=== PATIENT | female | born 1965 | race African-American/Black ===

== ENCOUNTER 2021-07-27 14:26 | Emergency (ER) | payer OTHER ==
[~2021-07-27 14:26] MED LIST: CLEOCIN300 MG PO; LISINOPRIL 10MG10 MG PO; ZANTAC150 MG PO
[2021-07-27] MEDS ORDERED: IBUPROFEN800 MG PO (23:35)
[2021-07-27] MEDS ORDERED: NORCO 5-325 TA1 EACH PO (23:35)
[2021-07-27] MEDS ORDERED: CYCLOBENZAPRINE10 MG PO (23:35)
[2021-07-27] MEDS ORDERED: MEDROL 4MG DOSEP4 MG PO (23:42)
== END 2021-07-27 23:55 | disposition home or self-care (01) ==
LOC: FER 14:26
DX: S16.1XXA Strain of muscle, fascia and tendon at neck level, initial encounter (principal); I10 Essential (primary) hypertension; Z88.2 Allergy status to sulfonamides; Z79.899 Other long term (current) drug therapy; V49.40XA Driver injured in collision with unspecified motor vehicles in traffic accident, initial encounter; Y92.410 Unspecified street and highway as the place of occurrence of the external cause
CPT/HCPCS: 70450; 72125; 73030; J1040; J1885; J7512

== ENCOUNTER 2021-12-23 17:55 | Emergency (ER) | payer OTHER ==
[~2021-12-23 17:55] MED LIST changes: +CYCLOBENZAPRINE10 MG PO; +IBUPROFEN800 MG PO; +MEDROL 4MG DOSEP4 MG PO; +NORCO 5-325 TA1 EACH PO
[2021-12-23 19:16] LABS: BASOPHIL 0.6 % (0-2); EOSINOPHIL 0.2 % (0-5); HCT 47.2 % (37.0-47.0); HGB 15.2 g/dl (12.5-16.0); LYMPHOCYTE 15.1 % (15-48); MCH 27.8 pg (25.0-31.0); MCHC 32.2 g/dL (32.0-36.0); MCV 86.4 fL (78.0-100.0); MPV 12.8 fL (6.0-9.5); NRBC 0; PLT 278 K/uL (150-400); RBC 5.46 M/uL (4.20-5.40); RDW 13.5 % (11.5-14.0); WBC 16.1 K/uL (4.0-10.5)
[2021-12-23 19:18] LABS: NEUTROPHIL 70.8 % (41-80)
[2021-12-23 19:52] LABS: CORONAVIRUS 2019 SARS-COV-2 NEGATIVE (NEGATIVE); INFLUENZA A NAA NEGATIVE (NEGATIVE)
[2021-12-23 20:14] LABS: BUN/CREAT RATIO (CALC) 27.5 RATIO; CREATININE 1.2 mg/dL (0.51-0.95); POTASSIUM 3.8 mmol/L (3.5-5.1)
[2021-12-23] MEDS ORDERED: PHENERGAN25 M1 PO (21:12)
[2021-12-23] MEDS ORDERED: ONDANSETRON ODT4 MG PO (21:12)
== END 2021-12-23 21:55 | disposition home or self-care (01) ==
LOC: FER 17:55
PROVIDERS: Emergency Medicine
DX: E86.0 Dehydration (principal); N17.9 Acute kidney failure, unspecified; K52.9 Noninfective gastroenteritis and colitis, unspecified; I10 Essential (primary) hypertension; Z20.822 Contact with and (suspected) exposure to COVID-19; Z88.2 Allergy status to sulfonamides
CPT/HCPCS: 36415; 71045; 71250; 80048; 84145; 85025; J2550; J7030; U0002

== ENCOUNTER 2022-03-05 17:44 | Emergency (ER) | payer OTHER ==
[~2022-03-05 17:44] MED LIST changes: +ONDANSETRON ODT4 MG PO; +PHENERGAN25 M1 PO
[2022-03-05 20:54] LABS: BILIRUBIN NEGATIVE (NEGATIVE); BLOOD NEGATIVE Ery/uL (NEGATIVE); CLARITY CLEAR (CLEAR); COLOR YELLOW (YELLOW); GLUCOSE (U) NORMAL (NORMAL); LEUKOCYTES NEGATIVE Leu/uL (NEGATIVE); NITRITE NEGATIVE (NEGATIVE); PROTEIN NEGATIVE (NEGATIVE); UROBILINOGEN 0.2 mg/dL (0.2-1.0); pH 5.5 (5.0-9.0)
[2022-03-05 21:59] LABS: BASOPHIL 0.3 % (0-2); EOSINOPHIL 0.2 & (0-5); HCT 41.9 % (37.0-47.0); HGB 13.9 g/dl (12.5-16.0); MCH 28.3 pg (25.0-31.0); MCHC 33.2 g/dL (32.0-36.0); MCV 85.3 fL (78.0-100.0); MPV 11.9 fL (6.0-9.5); NEUTROPHIL 71.7 % (41-80); PLT 226 K/uL (150-400); RBC 4.91 M/uL (4.20-5.40); RDW 13.7 % (11.5-14.0); WBC 14.56 K/uL (4.0-10.5)
[2022-03-05 22:00] LABS: MONOCYTE 11.7 % (0-12)
[2022-03-05 22:08] LABS: ALBUMIN 3.8 g/dL (3.4-5.0); BILIRUBIN - TOTAL 0.8 mg/dL (0.2-1.0); CREATININE 1.66 mg/dL (0.51-0.95); GLOBULIN (CALCULATION) 4.4 g/dL; POTASSIUM 2.5 mmol/L (3.5-5.1); TOTAL PROTEIN 8.2 g/dL (6.4-8.2)
== END 2022-03-06 01:34 | disposition home or self-care (01) ==
LOC: FER 17:44
PROVIDERS: Physician Assistant Medical
DX: N28.9 Disorder of kidney and ureter, unspecified (principal); E86.0 Dehydration; E87.6 Hypokalemia; I10 Essential (primary) hypertension; Z88.1 Allergy status to other antibiotic agents; Z79.899 Other long term (current) drug therapy
CPT/HCPCS: 36415; 80053; 81003; 85025; J2405; J3480; J7030